=== PATIENT | female | born 1970 | race Caucasian/White ===

== ENCOUNTER 2018-06-27 05:28 | Inpatient (IN) | payer BC ==
[2018-06-27] MEDS: CEFAZOLIN 2 GM/50 ML (PMX) 50 ML IVPB (06:00)
[2018-06-27] MEDS: SOD CHLORIDE 0.9% 100 ML, TRANEXAMIC ACID 3,000 MG IRR (06:00)
[2018-06-27] MEDS: GABAPENTIN 300 MG CAP PO ×2 (06:09→20:51)
[2018-06-27] MEDS: DEXAMETHASONE 1 MG TAB PO (06:09)
[2018-06-27] MEDS ORDERED: BUPIVACAINE 0.5%/EPI (SDV) 30 ML INJ (06:44)
[2018-06-27] MEDS ORDERED: CA CHLORIDE (GM) 10% 10 ML INJ (06:45)
[2018-06-27] MEDS ORDERED: morphine SULFATE/PF (10 MG/10 ML) INJ (06:51)
[2018-06-27] MEDS ORDERED: MIDAZOLAM 1 MG/ML 2 ML INJ (06:51)
[2018-06-27] MEDS ORDERED: PROPOFOL 20 ML (06:51)
[2018-06-27] MEDS ORDERED: ONDANSETRON 4 MG INJ (06:51)
[2018-06-27] MEDS ORDERED: FENTAnyl 50 MCG/ML VIAL (06:51)
[2018-06-27] MEDS ORDERED: METOCLOPRAMIDE 10 MG INJ (06:51)
[2018-06-27] MEDS ORDERED: DIPHENHYDRAMINE 50 MG INJ IV (07:00)
[2018-06-27] MEDS ORDERED: HYDROmorphONE 1 MG/5 ML IV SYRINGE IV ×3 (07:00)
[2018-06-27] MEDS ORDERED: MEPERIDINE 25 MG INJ IV (07:00)
[2018-06-27] MEDS ORDERED: ONDANSETRON 4 MG INJ IV ×2 (07:00→13:30)
[2018-06-27] MEDS ORDERED: EPHEDrine SULFATE 50 MG/5 ML SYG (07:19)
[2018-06-27] MEDS: TRANEXAMIC ACID 1,000 MG in DEXTROSE 5% 100 ML IVPB (07:37)
[2018-06-27] MEDS: THROMBIN 5000 UNIT VIAL (07:53)
[2018-06-27] MEDS: POLYMYXIN/BACITRACIN 1L IRRIG (07:53)
[2018-06-27] MEDS: BUPIVACAINE 0.5% (SDV) 30 ML, morphine SULFATE (PF) 8 MG, EPINEPHrine 0.3 MG, KETOROLAC... IRR (07:53)
[2018-06-27] MEDS: SENNA/DOCUSATE NA (8.6MG/50MG) TAB PO ×2 (09:00→20:51)
[2018-06-27] MEDS ORDERED: MAGNESIUM HYDROXIDE 30ML CUP PO (09:00)
[2018-06-27] MEDS: CEFAZOLIN 1 GM/50 ML (PMX) 50 ML IVPB ×2 (09:40→17:35)
[2018-06-27] MEDS ORDERED: ZOLPIDEM 5 MG TAB PO (13:30)
[2018-06-27] MEDS ORDERED: KETOROLAC 15 MG INJ IV (13:30)
[2018-06-27] MEDS ORDERED: morphine 2 MG INJ IV ×2 (13:30)
[2018-06-27 15:43] LABS: ADD MAN DIFF? NO
[2018-06-27 15:47] LABS: WHITE BLOOD COUNT 11.9 10^3/ul (4.8-10.8)
[2018-06-27 15:47] LABS: BASOPHILS % 0.3 % (0.0-2.0); HEMATOCRIT 32.8 % (37.0-47.0); HEMOGLOBIN 10.7 g/dl (12.0-16.0); LYMPHOCYTES # 0.7 10^3/ul (0.8-2.9); LYMPHOCYTES % 5.7 % (15.0-51.0); MEAN CORPUSCULAR HEMOGLOBIN 30.5 pg (29.0-33.0); MEAN CORPUSCULAR HGB CONC 32.6 g/dl (32.0-37.0); MEAN CORPUSCULAR VOLUME 93.4 fl (82.0-101.0); MEAN PLATELET VOLUME 9.3 fl (7.4-10.4); MONOCYTES % 8.2 % (0.0-11.0); NEUTROPHIL # 10.2 10^3/ul (1.6-7.5); NEUTROPHILS % 85.4 % (39.0-77.0); PLATELET COUNT 283 10^3/UL (140-415); RED BLOOD COUNT 3.51 10^6/ul (4.20-5.40); RED CELL DISTRIBUTION WIDTH 13.7 % (11.5-14.5)
[2018-06-28] MEDS: CEFAZOLIN 1 GM/50 ML (PMX) 50 ML IVPB ×5 (00:50→23:00)
[2018-06-28] MEDS ORDERED: ONDANSETRON 4 MG INJ IV (07:00)
[2018-06-28] MEDS ORDERED: MEPERIDINE 25 MG INJ IV (07:00)
[2018-06-28] MEDS ORDERED: DIPHENHYDRAMINE 50 MG INJ IV (07:00)
[2018-06-28] MEDS ORDERED: HYDROmorphONE 1 MG/5 ML IV SYRINGE IV ×3 (07:00)
[2018-06-28 07:07] LABS: ADD MAN DIFF? NO
[2018-06-28 07:13] LABS: BASOPHILS % 0.3 % (0.0-2.0); EOSINOPHILS # 0.1 10^3/ul (0.0-0.5); EOSINOPHILS % 0.8 % (0.0-7.0); HEMATOCRIT 29.9 % (37.0-47.0); HEMOGLOBIN 9.7 g/dl (12.0-16.0); LYMPHOCYTES # 1.9 10^3/ul (0.8-2.9); LYMPHOCYTES % 25.3 % (15.0-51.0); MEAN CORPUSCULAR HEMOGLOBIN 30.4 pg (29.0-33.0); MEAN CORPUSCULAR HGB CONC 32.4 g/dl (32.0-37.0); MEAN CORPUSCULAR VOLUME 93.7 fl (82.0-101.0); MEAN PLATELET VOLUME 9.3 fl (7.4-10.4); MONOCYTE # 1.1 10^3/ul (0.3-0.9); MONOCYTES % 14.5 % (0.0-11.0); NEUTROPHIL # 4.5 10^3/ul (1.6-7.5); PLATELET COUNT 238 10^3/UL (140-415); RED BLOOD COUNT 3.19 10^6/ul (4.20-5.40); RED CELL DISTRIBUTION WIDTH 13.7 % (11.5-14.5)
[2018-06-28 07:13] LABS: WHITE BLOOD COUNT 7.7 10^3/ul (4.8-10.8)
[2018-06-28] MEDS: OXYCODONE/ACETAMINOPHEN (5/325) TAB PO ×4 (07:22→21:02)
[2018-06-28] MEDS: SENNA/DOCUSATE NA (8.6MG/50MG) TAB PO ×2 (08:41→21:01)
[2018-06-28] MEDS: GABAPENTIN 300 MG CAP PO (21:01)
[2018-06-29] MEDS: SENNA/DOCUSATE NA (8.6MG/50MG) TAB PO ×2 (09:00→20:28)
[2018-06-29] MEDS: OXYCODONE/ACETAMINOPHEN (5/325) TAB PO ×3 (09:44→17:43)
[2018-06-29] MEDS: GABAPENTIN 300 MG CAP PO (20:28)
[2018-06-30] MEDS: OXYCODONE/ACETAMINOPHEN (5/325) TAB PO ×4 (03:52→17:34)
[2018-06-30] MEDS: SENNA/DOCUSATE NA (8.6MG/50MG) TAB PO (09:14)
[2018-06-30] MEDS: BACLOFEN 10 MG TAB PO (16:16)
== END 2018-06-30 21:13 | disposition home or self-care (01) | DRG 470 ==
LOC: REC 05:28 → MS1 09:50
PROVIDERS: Orthopaedic Surgery
PROC: 0SR904A Replacement of Right Hip Joint with Ceramic on Polyethylene Synthetic Substitute, Uncemented, Open Approach (ICD-10-PCS; principal; 2018-06-27 06:59)
DX: M87.851 Other osteonecrosis, right femur (principal); M16.7 Other unilateral secondary osteoarthritis of hip
CPT/HCPCS: 73530; 85025; 86850; 86900; 86901; 86999; 87086; 88304; 88311; 97110; 97116; 97161; 97530